=== PATIENT | male | born 1975 | race Hispanic/Latino ===

== ENCOUNTER 2016-11-01 09:50 | Emergency (ER) | payer OTHER ==
[2016-11-01] MEDS ORDERED: HYDROcodone-APAP 5 MG -325 MG TABLET PO ONE (09:54)
[2016-11-01] MEDS ORDERED: DIPH,PERTUSS,TET(ADACEL) VAC/PF 0.5 ML (Tdap) IM ONE (09:54)
[2016-11-01] MEDS ORDERED: CEPHALEXIN 500 MG CAPSULE PO SCH (10:00)
--- NOTE | 2016-11-01 10:02 | PDOC ---
Hand / Wrist Injury HPI - General Chief Complaint: Upper Extremity Problem/Injury Stated Complaint: RIGHT THUMB INJURY WHILE DOING [employer] AT WORK Date Seen by Provider: 11/01/16 Time Seen by Provider: 09:57 Source: POSITIVE: Patient Exam Limitations: POSITIVE: No limitations Nurse's Notes Reviewed & Considered: Yes - History of Present Illness Initial Comments: This very pleasant 41-year-old male comes in today with laceration over the dorsum at the base of right thumb. This morning patient was in his normal state of health, performing stuccowork, when he lacerated the base of his right thumb with a trowel. He has good range of motion and sensations in his distal thumb. Bleeding is controlled. No other injuries present. Have you received a tetanus shot in the past 10 years?: No Body Location Affected: REPORTS: Upper Extremity (R) (base of right thumb, laceration.) Timing: REPORTS: Abrupt Duration: 1/2 hour Severity: Moderate Location at Time of Onset: REPORTS: Work Context: REPORTS: Blow, Laceration Location of Injury: REPORTS: Right, 1st Finger Quality: REPORTS: "Pain" Modifying Factors: REPORTS: Movement, Rest Associated Symptoms: REPORTS: Other (None) Any Prior Injuries Related to Current Complaint?: No - Patient Allergies Allergies/Adverse Reactions: Allergies Allergy/AdvReac Type Severity Reaction Status Date / Time No Known Allergies Allergy Verified 11/01/16 10:06 ROS - Limitations ROS Limitations: No Limitations Constitution: REPORTS: Denies Symptoms Cardiovascular: REPORTS: Denies Cardiac Symptoms Respiratory: REPORTS: Denies Resp Symptoms Neurological: REPORTS: Denies Neuro Symptoms Gastrointestinal: REPORTS: Denies GI Symptoms Endocrine: REPORTS: Denies Symptoms Musculoskeletal: REPORTS: Other (Laceration base of right thumb) Genitourinary: REPORTS: Denies Symptoms Eyes: REPORTS: Denies Symptoms ENT: REPORTS: Denies Symptoms Skin: REPORTS: Denies Skin Symptoms Lympathic: REPORTS: Denies Lympathic Symptoms Immunologic: POSITIVE: Denies Symptoms Psychiatric: POSITIVE: Denies Psych Symptoms Hand / Wrist Injury Exam - General Appearance General Appearance: POSITIVE: Alert, Cooperative, No Acute Distress - Extremities Upper Extremity: POSITIVE: No Evidence of FB, Normal ROM, Other (laceration base of right thumb, measuring approximately 2.5 cm.) Neurovascular / Tendon: POSITIVE: Sensation Normal, Motor Normal, No Vascular Compromise, Tendon Function Normal Skin: POSITIVE: Warm, Dry Procedure - Laceration/Wound Repair Site of Lac/Wound:: Dorsal base of right thumb Time of Suture Placement:: 11:31 Wound's Depth, Shape: Into subcutaneous tissue, Linear Distal CMS: Yes Skin Prep: Betadine Prep Local Anesthesia Used - Indicate Amt Used in Comment: Lidocaine 1%: Yes Wound Explored: No foreign body removed Wound Debrided: Minimal Wound Repaired With: Sutures single layer Suture Size/Type: 4:0, Prolene Number of Sutures: 5 Layer Closure?: No Drain Placement: No Sterile Dressing Applied?: Yes Splint Applied?: No Sling Applied?: No Procedure Note:: Patient had his hand soaked in Betadine and normal saline. Wound was draped in a sterile manner, 1% plain lidocaine was infiltrated into the laceration margins. This resulted in excellent anesthesia. 4-0 Prolene was utilized in interrupted fashion to reapproximate the skin edges. A total of 5 interrupted sutures were placed with good skin edge reapproximation and excellent hemostasis. Patient tolerated this well. He receives instructions in wound care, and instructions to return to the emergency department in 10 days for suture removal. Hand / Wrist Injury Progress - Results Reviewed by me Xrays/CTs/US Reviewed by me: Yes Discussed with Radiologist: No - Patient's Progress Pain Medication Addressed: POSITIVE: Yes Re-Examine Time: 11:33 Status: POSITIVE: Improved MDM / ED Course: Patient was examined, radiographic examinations were obtained. Patient received a tetanus update, [place], and Keflex. Assessment: Laceration without involvement of tendons or nerves. He has good capillary refill good sensations distally. Plan: Discharge home keep and clean and dry. Keflex for 5 days. Tylenol and ibuprofen as needed. Return to the emergency room and 10 days for suture removal. - Consult Counseled: POSITIVE: Patient, RE: Radiology Results, RE: DX, RE: Need for F/U Patient Care Time - Estimated PCT Patient Care Time (In Minutes): 45 Vital Signs - Recent Vital Signs Vital Signs: Vital Signs (Last 8 hours) Temp Pulse Resp BP Pulse Ox 11/01/16 09:59 96.4 F L 80 18 148/88 97 - VS Reviewed Vital Signs Reviewed: Yes Discharge Clinical Impression: Open wound of hand Discharge Disposition: Discharged to Home Condition: Good Patient Instructions Given at Discharge: Laceration (ED)
[2016-11-01] MEDS ORDERED: Lidocaine 1% 10 MG/ML - 20 ML VIAL SUBCUT ONE (10:06)
[2016-11-01 10:09] VITALS: RESP 18; TEMP 96.4
[2016-11-01] MEDS ORDERED: BACITRACIN 0.9 GM PACKET OINT TOPICAL ONE (11:24)
--- NOTE | 2016-11-01 12:51 | DI ---
RIGHT THUMB EXAM, 11/01/2016 9:54 AM: Clinical History: Trauma. Previous Exam: None at this facility. 3 views are submitted. There is a laceration over the the distal head of the first metacarpal bone. T here is no fracture or dislocation or evidence of a radiopaque foreign body or intra-articular gas. O n the PA projection of the hand, radiodensities are present on the skin surface on the medial aspect of the fifth metacarpal bone representing some dirt or other debris. Reading: Laceration at the first metacarpophalangeal joint without evidence of intra-articular gas or a radiop aque foreign body. There is no fracture or dislocation.
== END 2016-11-01 11:40 | disposition home or self-care (01) ==
LOC: ER 09:50
DX: S61.001A Unspecified open wound of right thumb without damage to nail, initial encounter (principal); W45.8XXA Other foreign body or object entering through skin, initial encounter; Y93.H3 Activity, building and construction; Y99.0 Civilian activity done for income or pay
CPT/HCPCS: 12001; 73140; 90471; 99282